=== PATIENT | female | born 1970 | race Caucasian/White ===

== ENCOUNTER 2016-10-15 08:53 | Observation (INO) | payer OTHER ==
[~2016-10-15] VITALS: Ht 176.5 cm; Wt 103.8 kg
--- NOTE | 2016-10-15 11:50 | ED ORDER SUMMARY ---
..... Patient: LEATHA VERGARA OrderSheet [facility] VisitID: [id number] Rashmi Sánchez [place] [address] 45y, F Registration Date/Time: 10/15/2016 ORDER SHEET Weight: 102.0 kg (stated) Allergies: Sulfa Antibiotics, Cipro, Levaquin, Lyrica, Augmentin GENERAL ORDERS: UA-Culture if indicated Urgent (09:10/15/2016 Elsie R.N. verbal order read back to Melissa CANTOR) (Ack 9:32 Simone) (11:26 EHassan R.N.) Urine Drug Screen Urgent (09:10/15/2016 Elsie R.N. verbal order read back to Melissa CANTOR) (Ack 9:32 Simone) (11:26 EHassan R.N.) CBC w Diff Urgent (09:10/15/2016 Elsie R.N. verbal order read back to Melissa CANTOR) (9:21 Raleighams R.N.) CMP Urgent (09:10/15/2016 Raleighams R.N. verbal order read back to Melissa CANTOR) (9:21 JAIROilliams R.N.) Cardiac Panel Stat (09:10/15/2016 Raleighams R.N. verbal order read back to Melissa CANTOR) (9:21 KWilliams R.N.) EKG - ER Stat (09:24 10/15/2016 LNations ER Tech1 per protocol) (9:24 LNations ER Tech1) Chest 1V Urgent (11:51 10/15/2016 Melissa CANTOR) (12:02 Simone) MEDICATION ORDERS: Aspirin PO 325 mg (NOW) (12:33 10/15/2016 Melissa CANTOR) (13:03 Mary Beth R.N.) IV FLUIDS: IV Saline Lock (09:10/15/2016 Elsie R.N. verbal order read back to Melissa CANTOR) (9:21 KWilliams R.N.) ORDER SHEET NOTES: [Electronically signed by Alin Milan MD (14:16 10/15/2016)] [Electronically signed by Kendy Cloud R.N. (15:11 10/15/2016)] [Electronically locked/signed by Kendy Cloud R.N. (15:11 10/15/2016)]
--- NOTE | 2016-10-15 11:50 | ED NURSING NOTES ---
Clinical Report - Nurses [place] [address] [address] [place] [address] 10/15/2016 8:59 Patient: LEATHA VERGARA TRIAGE Triage time 08:46. Acuity: LEVEL 2. Chief Complaint: (Left arm tingling). Alert. No acute distress. ALYSSA COMA SCORE: Protivin Coma Scale: 15- eyes open spontaneously (4); best verbal response- oriented x 4 (5); best motor response- obeys commands (6). --09:13 Jonathan Beauchamp R.N. 09:00 10/15/16. BP: 126/44. HR: 74. RR: 16. O2 saturation: 97% on room air. Temp: 97.9 F (oral). Pain level now 7/10. --09:13 Jonathan Beauchamp R.N. Weight: 102 kg stated. Height/Length: 69 inches Per Patient. BMI: 33.2. --09:00 Jonathan Beauchamp R.N. Medications Januvia Oral (Tablet 100 mg) 1 tablet, daily. --09:58 Jonathan Beauchamp R.N. Ranitidine HCl Oral (Capsule 300 mg) 1 capsule, at bedtime. --09:59 Jonathan Beauchamp R.N. Prazosin HCl Oral (Capsule 1 mg) 1 capsule, 2x a day. --09:59 Jonathan Beauchamp R.N. Triumeq Oral (Tablet 600-50-300 mg) 1 tablet, daily. --10:00 Jonathan Beauchamp R.N. KlonoPIN Oral (Tablet 1 mg) 1 tablet, 3x a day as needed. --10:00 Jonathan Beauchamp R.N. BuPROPion HBr Oral 75mg, BID. --10:00 Jonathan Beauchamp R.N. Lo Loestrin Fe Oral (Tablet 1 MG-10 MCG / 10 MCG) 1 tablet, daily. --10:01 Jonathan Beauchamp R.N. Dexilant Oral (Capsule Delayed Release 60 mg) 1 capsule, daily (x8 weeks). --10:01 Jonathan Beauchamp R.N. Lantus Subcutaneous 55 units, at bedtime. --10:01 Jonathan Beauchamp R.N. Propranolol HCl ER Oral (Capsule Extended Release 24 Hour 80 mg) 1 capsule, daily. --10:03 Jonathan Beauchamp R.N. The following entry was struck by Jonathan Beauchamp R.N., 09:58 (10/15/16) Reason - other. <<STRICKEN ENTRY-- Unknown. --09:07 Jonathan Beauchmap R.N. --END STRIKE>>. Medication/allergy information source: the patient. --09:13 Jonathan Beauchamp R.N. Allergies Sulfa Antibiotics. --09:07 Jonathan Beauchamp R.N. Cipro. --09:07 Jonathan Beauchamp R.N. Levaquin. --09:07 Jonathan Beauchamp R.N. Lyrica. --09:08 Jonathan Beauchamp R.N. Augmentin. --09:08 Jonathan Beauchamp R.N. History Arrived by private vehicle. Primary physician (NANI). ( Arrived via EMS from [facility] [employer]. Per pt she was at [employer] [facility] [employer] [facility] [employer] all night and hasn't slept in >24 hours. Pt experienced some left sided back pain which she describes as in her "rib area" and some left arm tingling. Negative FAST exam per this RN and per medic at scene aside from some slightly decreased painting contractor strength in LUE. Pt states she has a "cardiac" history but is unsure what it entails. She states she takes home medications but is unsure what they are.). This started today. Treatment PROP AND SCENERY MAKER: EMS treatment PROP AND SCENERY MAKER verbally communicated. Finger stick glucose performed (170). BP: 135 / palp. HR: 74. Upon arrival patient awake. PAST MEDICAL HX: The patient has had a hysterectomy. Denies current . SOCIAL HX: Heavy tobacco smoker (cigarette)- 1 pack per day. History of drug use: marijuana. No alcohol use. FALL RISK ASSESSMENT: Fall risk assessment completed. No fall risk identified. NUTRITIONAL RISK ASSESSMENT: The nutritional risk assessment revealed no deficiencies. FUNCTIONAL ASSESSMENT: Functional assessment: no impairments noted. LEARNING NEEDS ASSESSMENT: The learning needs assessment revealed no barriers. SKIN INTEGRITY ASSESSMENT: Skin integrity risk assessment completed. No skin integrity risk identified. ALYSSA COMA SCORE: Alyssa Coma Scale: 15- eyes open spontaneously (4); best verbal response- oriented x 4 (5); best motor response- obeys commands (6). --09:13 Jonathan Beauchamp R.N. ( now complaining of some left sided chest pain. notified, EKG). --09:13 Jonathan Beauchamp R.N. Treatment PROP AND SCENERY MAKER: Pre-hospital 12-lead EKG time: (842). Pre-hospital 12-lead EKG performed en route and interpreted by EMS. EKG consistent with normal tracing. --09:22 Jonathan Beauchamp R.N. PROBLEMS: Bronchitis. Pneumonia. COPD - Chronic Obstructive Pulmonary Disease. Hypertension. Gastroesophageal Reflux Disease. HIV Illness. Diabetes Mellitus. --09:10 Jonathan Beauchamp R.N. ADDITIONAL SURGERIES: Cholecystectomy. Hysterectomy. Knee Surgery. Sinus Surgery. --09:10 Jonathan Beauchamp R.N. Interventions ID band on patient. To treatment room. --09:13 Jonathan Beauchamp R.N. 08:57 10/15/2016 Site #1 started prior to arrival by EMS via IV in the right forearm with an 20g angiocath, with aseptic technique and good blood return; one attempt. --09:07 Jonathan Beauchamp R.N. PHYSICAL ASSESSMENT To room via stretcher. Baseline functional status: unknown. GENERAL / NEURO / PSYCH: Awake. Oriented X 4. Alert. Appears in no acute distress. Protivin Coma Scale: 15- eyes open spontaneously (4); best verbal response- oriented x 4 (5); best motor response- obeys commands (6). Speech normal. Mood/affect normal. Strength is unequal; right painting contractor is greater than the left painting contractor. No sensory deficit. HEENT: No facial asymmetry noted. RESPIRATORY: Respirations not labored. CVS: Capillary refill less than 2 seconds. SKIN: Skin is intact, warm and dry. --09:15 Jonathan Beauchamp R.N. NURSING PROGRESS NOTES 09:16 10/15/16. The plan of care for this patient has been created. nuclear monitoring technician, pulse oximeter and NIBP monitor placed on patient. Patient gowned. Head of bed elevated. ( spouse at bedside). Call light placed in reach. Side rails up x 2. Bed placed in lowest position. Brakes of bed on. --09:16 Jonathan Beauchamp R.N. ( pt states she is unable to provide urine sample at this time). --09:26 Jonathan Beauchamp R.N. ( Pt is unable to provide any home medication names. Called [facility] to obtain medication list). --09:28 Jonathan Beauchamp R.N. The patient reports no complaints and she is calm and resting quietly. --09:57 Jonathan Beauchamp R.N. 09:57 10/15/16. BP: 114/52. HR: 80. RR: 20. O2 saturation: 96% on room air. --09:57 Jonathan Beauchamp R.N. Care transferred and report given (BARBIE Larry). --10:15 Jonathan Beauchamp R.N. Patient ID band checked for patient name and birthdate: patient confirmed. Instructions provided to collect clean catch urine and patient verbalized understanding. Clean catch urine collected with return of yellow-colored clear urine; odor is normal; sample sent to lab for urinalysis, culture and drug screen. Specimen labeled in the presence of the patient. --11:14 Jonathan Beauchamp R.N. The patient reports no complaints and she is calm and resting quietly. --11:14 Jonathan Beauchamp R.N. 11:06 10/15/16. BP: 119/57 (regular adult cuff) taken on the right arm, via an automated monitor, while sitting. HR: 89. RR: 16. O2 saturation: 96% on room air. Temp: 98.3 F (oral). Pain level now: 07/20. --11:27 Kendy Cloud R.N. Cardiac rhythm: normal sinus rhythm. Reassurance given. The patient is calm and resting quietly. Overall patient status is the same- she states feels the same. ( Neuro intact, VSS, waiting on results.). GENERAL / NEURO / PSYCH: The patient reports numbness of the left hand. Denies headache and weakness. Alert. Oriented X 4. HEENT: Pupils equal, round and reactive to light. GI / : Denies nausea. SKIN: Skin is warm. Call light placed in reach. Side rails up x 1. --11:27 Kendy Cloud R.N. ( H/P forms on chart.). --11:56 Mirna Lunaia 12:18 10/15/16. BP: 119/73 (regular adult cuff) taken on the right arm, via an automated monitor, while sitting. HR: 86. RR: 26. O2 saturation: 96%. Temp: 98.6 F (oral). Pain level now: 0/10. --12:20 Kendy Cloud R.N. nuclear monitoring technician, pulse oximeter and NIBP monitor placed on patient. Reassurance given. The patient is calm. Overall patient status is the same- she states feels the same. GENERAL / NEURO / PSYCH: The patient reports numbness of the left arm and hand. Denies headache and weakness. Speech normal. No weakness. GI / : Denies nausea. SKIN: Skin is warm. Call light placed in reach. --12:20 Kendy Cloud R.N. 09:10 10/15/2016 Site #2 started via IV in the left antecubital space with an 18g angiocath. --13:10 Kendy Cloud R.N. 13:03 10/15/2016 Aspirin PO Capsules 325 mg given. Allergies verified and confirmed 5 rights. --13:03 Kendy Cloud R.N. 13:10 10/15/2016 IV Saline Lock Drip IV Discontinued: upon transfer. --13:10 Kendy Cloud R.N. DISPOSITION / DISCHARGE 13:11 10/15/2016 Site #2 reassessed; patent, infusing well and no signs of infection or infiltration. Line flushed with saline. Converted to saline lock. Flushed with 10 mL saline. --13:21 Kendy Cloud R.N. 13:21 10/15/2016 Site #1 removed upon discharge. Manual pressure, pressure dressing, bandaid and bandage applied (wrong site). --13:21 Kendy Cloud R.N. Departure time: 1317 PM. The goals identified in the patient's plan of care were met. Report was given via a phone call. Report included patient's care, treatment, medications, reviewed medication reconcilliation, and condition (including any recent changes or anticipated changes). All questions were answered. Report was acknowledged and care was transferred. (Shavon Cavazos). FALL RISK ASSESSMENT: Fall risk assessment completed. No fall risk identified. --13:22 Kendy Cloud R.N. 13:15 10/15/16. BP: 128/78. HR: 74. RR: 14. O2 saturation: 97%. Temp: 98.3 F (oral). Pain level now: 4/10. --13:22 Kendy Cloud R.N. Transported via stretcher by transport team. --13:22 Kendy Cloud R.N. Locked/Released at 10/15/2016 15:11 by Kendy Cloud R.N.
--- NOTE | 2016-10-15 11:50 | ED CLINICAL REPORT ---
Clinical Report - Physicians/Mid Levels [facility] [address] SAndrew [place]án[place], [place] [address] 10/15/2016 8:59 Patient: LEATHA VERGARA Time Seen: 09:02. Arrived- By private vehicle. Historian- patient. HISTORY OF PRESENT ILLNESS Chief Complaint: CHEST PAIN. It is described as tightness and "pain" and it is described as located in the central chest area and radiating to the left upper extremity. At its maximum, severity described as 7 / 10. When seen in the E.D., severity described as 4 / 10. This started today at about 5 AM and is still present. It was abrupt in onset and has been constant and waxing/waning. Onset during she noticed tingling in her left hand overnight. [place] a casino. The patient has had mild difficulty breathing and nausea. No vomiting. REVIEW OF SYSTEMS No chills, fever, sweats, calf pain or cough. No palpitations. She has had difficulty breathing and mild pedal edema. All systems otherwise negative, except as recorded above. PAST HISTORY Problems: Bronchitis. Pneumonia. COPD - Chronic Obstructive Pulmonary Disease. Hypertension. Gastroesophageal Reflux Disease. HIV Illness. Diabetes Mellitus. Additional Surgeries: Cholecystectomy. Hysterectomy. Knee Surgery. Sinus Surgery. Medications: Propranolol HCl ER Oral (Capsule Extended Release 24 Hour 80 mg) 1 capsule, daily. Lantus Subcutaneous 55 units, at bedtime. Dexilant Oral (Capsule Delayed Release 60 mg) 1 capsule, daily (x8 weeks). Lo Loestrin Fe Oral (Tablet 1 MG-10 MCG / 10 MCG) 1 tablet, daily. BuPROPion HBr Oral 75mg, BID. KlonoPIN Oral (Tablet 1 mg) 1 tablet, 3x a day as needed. Triumeq Oral (Tablet 600-50-300 mg) 1 tablet, daily. Prazosin HCl Oral (Capsule 1 mg) 1 capsule, 2x a day. Ranitidine HCl Oral (Capsule 300 mg) 1 capsule, at bedtime. Januvia Oral (Tablet 100 mg) 1 tablet, daily. Allergies: Augmentin. Cipro. Levaquin. Lyrica. Sulfa Antibiotics. SOCIAL HISTORY Current every day heavy tobacco smoker (cigarette)- 1 pack per day. History of drug use: marijuana. No alcohol use. FAMILY HISTORY Heart disease in first-degree relative (father). ADDITIONAL NOTES The nursing notes have been reviewed. PHYSICAL EXAM Vital Signs: 10/15/2016 09:00 BP: 126/44. HR: 74. RR: 16. O2 saturation: 97%. Temp: 97.9 F. Appearance: Alert. She is morbidly obese. Eyes: Pupils equal, round and reactive to light. ENT: Pharynx normal. Neck: Normal inspection. Neck supple. CVS: Normal heart rate and rhythm. Heart sounds normal. Respiratory: No respiratory distress. Breath sounds normal. Abdomen: Soft and nontender. Bowel sounds normal. No organomegaly. No mass. Obese. Back: Normal external inspection. Skin: Skin warm and dry. Normal skin color. Normal skin turgor. Extremities: Bilateral 1+ pitting edema of the lower extremities. No calf tenderness. LABS, X-RAYS, AND EKG The study has been independently viewed by me. Chest X-ray: No acute disease. The X-rays were independently viewed by me. Laboratory Tests: UA-Culture if indicated: (JUAN MANUEL: 10/15/2016 11:09) ( MsgRcvd 10/15/2016 11:35) Final results Test Result Flag Units (Reference) URINE COLOR YELLOW URINE APPEARANCE CLEAR URINE GLUCOSE NEGATIVE (NEGATIVE) URINE BILIRUBIN NEGATIVE (NEGATIVE) URINE KETONE NEGATIVE (NEGATIVE) URINE SPECIFIC GRAVITY 1.010 (1.010-1.030) URINE PH 6.0 (5.0-8.0) URINE PROTEIN NEGATIVE (NEGATIVE) URINE UROBILINOGEN 0.2 EU/dL (0.2-1.0) URINE NITRITE NEGATIVE (NEGATIVE) URINE BLOOD NEGATIVE (NEGATIVE) URINE LEUK ESTERASE NEGATIVE (NEGATIVE) URINE RBC NONE SEEN rbc/hpf (0-1) URINE WBC RARE wbc/hpf (0-1) URINE EPITHELIAL CELLS 1-3 EPI/hpf (0-5) URINE BACTERIA TRACE (<1+) (NONE SEEN) URINE COMMENT CULT NOT INDICATED URINE CULTURES ARE SET-UP BASED ON THE FOLLOWING CRITERIA:POSITIVE NITRITEPOSITIVE LEUKOCYTE ESTERASEGREATER THAN 10 WHITE BLOOD CELLSMODERATE (2+) OR GREATER BACTERIA CBC w Diff: (JUAN MANUEL: 10/15/2016 09:15) ( MsgRcvd 10/15/2016 09:28) Final results Test Result Flag Units (Reference) WHITE BLOOD COUNT 11.8 H K/uL (4.5-11.5) RED BLOOD COUNT 4.65 M/uL (4.00-5.20) HEMOGLOBIN 13.1 gm/dL (12.0-16.0) HEMATOCRIT 39.5 % (36.0-46.0) MEAN CELL VOLUME 85 fL (80-100) MEAN CORPUSCULAR HGB 28 pg (26-34) MEAN CORPUSCULAR HGB CONC 33 g/dL (31-37) RED CELL DISTRIBUTION WIDTH 14.5 % (11.6-14.8) PLATELET COUNT 278 K/uL (150-400) NEUTROPHIL % 69.0 % (50-75) LYMPH % 25.9 % (25-40) MONO % 3.4 % (3-14) EOSINOPHIL % 1.3 % (0-4) BASOPHIL % 0.4 % (0-2) [id number]: (JUAN MANUEL: 10/15/2016 11:09) ( MsgRcvd 10/15/2016 11:35) Final results Test Result Flag Units (Reference) URINE DRUG SCREEN POSITIVE,Unconfirmed DRUGS DETECTED: TCA (Tricyc Antidep)~~THC (Cannabinoids) The urine drug screen is a qualitative screening test fordrug overdose and abuse. All screen results should beconsidered as presumptive.Drugs screened for are as follows:BenzodiazepinesCocaineAmphetamines/MetamphetaminesTHC (Tetrahydrocannabinol)OpiatesBarbituratesTCA (Tricyclic Antidepressants)MethadonePositive results are unconfirmed. For confirmation, notifythe lab for the specimen to be sent to the reference lab.All confirmations must be performed by a differentmethodology.The ingestion of natural herbal and plant productscontaining Ephedra/Ephedra metabolites can produce in urineone or more substances capable of cross reacting withamphetamine/methamphetamine immunoassays. This testprovides a preliminary result only. A more specificalternative chemical method must be used to obtain aconfirmed analytical result. CHEM 13 PANEL: (JUAN MANUEL: 10/15/2016 09:15) ( MsgRcvd 10/15/2016 09:45) Final results Test Result Flag Units (Reference) GLUCOSE 161 H mg/dL (70-110) BUN 9 mg/dL (7-18) CREATININE 0.8 mg/dL (0.6-1.3) Estimated GFR >60 mL/min Estimated GFR- >60 mL/min Note: Persistent reduction over 3 months in eGFR<60 mL/min/1.73 m2 defines CKD. Patients with eGFR values>=60 mL/min/1.73 m2 may also have CKD if evidence ofpersistent proteinuria. Additional information may be foundat www.kidney.org. SODIUM 139 mmol/L (136-145) POTASSIUM 3.6 mmol/L (3.5-5.1) CHLORIDE 102 mmol/L (98-107) CARBON DIOXIDE 26 mmol/L (21-32) CALCIUM 8.6 mg/dL (8.5-10.1) TOTAL PROTEIN 7.3 g/dL (6.4-8.2) ALBUMIN 3.3 g/dL (3.3-5.0) BILIRUBIN, TOTAL 0.5 mg/dL (0.0-1.0) ALKALINE PHOSPHATASE 96 U/L (46-116) AST (SGOT) 15 U/L (15-37) ALT (SGPT) 24 U/L (12-78) MAGNESIUM 2.1 mg/dL (1.8-2.4) CPK 53 U/L (24-260) TROPONIN I <0.05 ng/mL (0.00-1.5) TROPONIN REFERENCE RANGE:<0.1 NEGATIVE0.1-1.5 INDETERMINANT>1.5 POSITIVE . PROGRESS AND PROCEDURES Discussed case with hospitalist, (Alberto). Reviewed test results and need for additional work-up. Agreed upon treatment plan, need for patient follow-up and decision to place in observation. Health care provider will see patient in hospital. Patient/family counseled. Old medical records ordered. [facility] Disposition: Admitted. Observation. CLINICAL IMPRESSION Chest pain. (Electronically signed by Alin Milan MD 10/15/2016 14:16)
--- NOTE | 2016-10-15 11:50 | ED NURSING NOTES ---
Clinical Report - Nurses [facility] [address] [place] [address] 10/15/2016 8:59 Patient: LEATHA VERGARA TRIAGE Triage time 08:46. Acuity: LEVEL 2. Chief Complaint: (Left arm tingling). Alert. No acute distress. ALYSSA COMA SCORE: [place] Coma Scale: 15- eyes open spontaneously (4); best verbal response- oriented x 4 (5); best motor response- obeys commands (6). --09:13 Jonathan Beauchamp R.N. 09:00 10/15/16. BP: 126/44. HR: 74. RR: 16. O2 saturation: 97% on room air. Temp: 97.9 F (oral). Pain level now 7/10. --09:13 Jonathan Beauchamp R.N. Weight: 102 kg stated. Height/Length: 69 inches Per Patient. BMI: 33.2. --09:00 Jonathan Beauchamp R.N. Medications Januvia Oral (Tablet 100 mg) 1 tablet, daily. --09:58 Jonathan Beauchamp R.N. Ranitidine HCl Oral (Capsule 300 mg) 1 capsule, at bedtime. --09:59 Jonathan Beauchamp R.N. Prazosin HCl Oral (Capsule 1 mg) 1 capsule, 2x a day. --09:59 Jonathan Beauchamp R.N. Triumeq Oral (Tablet 600-50-300 mg) 1 tablet, daily. --10:00 Jonathan Beauchamp R.N. KlonoPIN Oral (Tablet 1 mg) 1 tablet, 3x a day as needed. --10:00 Jonathan Beauchamp R.N. BuPROPion HBr Oral 75mg, BID. --10:00 Jonathan Beauchamp R.N. Lo Loestrin Fe Oral (Tablet 1 MG-10 MCG / 10 MCG) 1 tablet, daily. --10:01 Jonathan Beauchamp R.N. Dexilant Oral (Capsule Delayed Release 60 mg) 1 capsule, daily (x8 weeks). --10:01 Jonathan Beauchamp R.N. Lantus Subcutaneous 55 units, at bedtime. --10:01 Jonathan Beauchamp R.N. Propranolol HCl ER Oral (Capsule Extended Release 24 Hour 80 mg) 1 capsule, daily. --10:03 Jonathan Beauchamp R.N. The following entry was struck by Jonathan Beauchamp R.N., 09:58 (10/15/16) Reason - other. <<STRICKEN ENTRY-- Unknown. --09:07 Jonathan Beauchamp R.N. --END STRIKE>>. Medication/allergy information source: the patient. --09:13 Jonathan Beauchamp R.N. Allergies Sulfa Antibiotics. --09:07 Jonathan Beauchamp R.N. Cipro. --09:07 Jonathan Beauchamp R.N. Levaquin. --09:07 Jonathan Beauchamp R.N. Lyrica. --09:08 Jonathan Beauchamp R.N. Augmentin. --09:08 Jonathan Beauchamp R.N. History Arrived by private vehicle. Primary physician (NANI). ( Arrived via EMS from [facility]. Per pt she was at [facility] all night and hasn't slept in >24 hours. Pt experienced some left sided back pain which she describes as in her "rib area" and some left arm tingling. Negative FAST exam per this RN and per medic at scene aside from some slightly decreased director it project strength in LUE. Pt states she has a "cardiac" history but is unsure what it entails. She states she takes home medications but is unsure what they are.). This started today. Treatment [employer]UST [employer]OP [employer]KER: EMS treatment [employer]ER verbally communicated. Finger stick glucose performed (170). BP: 135 / palp. HR: 74. Upon arrival patient awake. PAST MEDICAL HX: The patient has had a hysterectomy. Denies current . SOCIAL HX: Heavy tobacco smoker (cigarette)- 1 pack per day. History of drug use: marijuana. No alcohol use. FALL RISK ASSESSMENT: Fall risk assessment completed. No fall risk identified. NUTRITIONAL RISK ASSESSMENT: The nutritional risk assessment revealed no deficiencies. FUNCTIONAL ASSESSMENT: Functional assessment: no impairments noted. LEARNING NEEDS ASSESSMENT: The learning needs assessment revealed no barriers. SKIN INTEGRITY ASSESSMENT: Skin integrity risk assessment completed. No skin integrity risk identified. ALYSSA COMA SCORE: [place] Coma Scale: 15- eyes open spontaneously (4); best verbal response- oriented x 4 (5); best motor response- obeys commands (6). --09:13 Jonathan Beauchamp R.N. ( now complaining of some left sided chest pain. notified, EKG). --09:13 Jonathan Beauchamp R.N. Treatment [employer]KER: Pre-hospital 12-lead EKG time: (842). Pre-hospital 12-lead EKG performed en route and interpreted by EMS. EKG consistent with normal tracing. --09:22 Jonathan Beauchamp R.N. PROBLEMS: Bronchitis. Pneumonia. COPD - Chronic Obstructive Pulmonary Disease. Hypertension. Gastroesophageal Reflux Disease. HIV Illness. Diabetes Mellitus. --09:10 Jonathan Beauchamp R.N. ADDITIONAL SURGERIES: Cholecystectomy. Hysterectomy. Knee Surgery. Sinus Surgery. --09:10 Jonathan Beauchamp R.N. Interventions ID band on patient. To treatment room. --09:13 Jonathan Beauchamp R.N. 08:57 10/15/2016 Site #1 started prior to arrival by EMS via IV in the right forearm with an 20g angiocath, with aseptic technique and good blood return; one attempt. --09:07 Jonathan Beauchamp R.N. PHYSICAL ASSESSMENT To room via stretcher. Baseline functional status: unknown. GENERAL / NEURO / PSYCH: Awake. Oriented X 4. Alert. Appears in no acute distress. [place] Coma Scale: 15- eyes open spontaneously (4); best verbal response- oriented x 4 (5); best motor response- obeys commands (6). Speech normal. Mood/affect normal. Strength is unequal; right director it project is greater than the left director it project. No sensory deficit. HEENT: No facial asymmetry noted. RESPIRATORY: Respirations not labored. CVS: Capillary refill less than 2 seconds. SKIN: Skin is intact, warm and dry. --09:15 Jonathan Beauchamp R.N. NURSING PROGRESS NOTES 09:16 10/15/16. The plan of care for this patient has been created. high school counselor, pulse oximeter and NIBP monitor placed on patient. Patient gowned. Head of bed elevated. ( spouse at bedside). Call light placed in reach. Side rails up x 2. Bed placed in lowest position. Brakes of bed on. --09:16 Jonathan Beauchamp R.N. ( pt states she is unable to provide urine sample at this time). --09:26 Jonathan Beauchamp R.N. ( Pt is unable to provide any home medication names. Called [facility] to obtain medication list). --09:28 Jonathan Beauchamp R.N. The patient reports no complaints and she is calm and resting quietly. --09:57 Jonathan Beauchamp R.N. 09:57 10/15/16. BP: 114/52. HR: 80. RR: 20. O2 saturation: 96% on room air. --09:57 Jonathan Beauchamp R.N. Care transferred and report given (BARBIE Larry). --10:15 Jonathan Beauchamp R.N. Patient ID band checked for patient name and birthdate: patient confirmed. Instructions provided to collect clean catch urine and patient verbalized understanding. Clean catch urine collected with return of yellow-colored clear urine; odor is normal; sample sent to lab for urinalysis, culture and drug screen. Specimen labeled in the presence of the patient. --11:14 Jonathan Beauchamp R.N. The patient reports no complaints and she is calm and resting quietly. --11:14 Jonathan Beauchamp R.N. 11:06 10/15/16. BP: 119/57 (regular adult cuff) taken on the right arm, via an automated monitor, while sitting. HR: 89. RR: 16. O2 saturation: 96% on room air. Temp: 98.3 F (oral). Pain level now: 07/20. --11:27 Kendy Cloud R.N. Cardiac rhythm: normal sinus rhythm. Reassurance given. The patient is calm and resting quietly. Overall patient status is the same- she states feels the same. ( Neuro intact, VSS, waiting on results.). GENERAL / NEURO / PSYCH: The patient reports numbness of the left hand. Denies headache and weakness. Alert. Oriented X 4. HEENT: Pupils equal, round and reactive to light. GI / : Denies nausea. SKIN: Skin is warm. Call light placed in reach. Side rails up x 1. --11:27 Kendy Cloud R.N. ( H/P forms on chart.). --11:56 Mirna Lunaia 12:18 10/15/16. BP: 119/73 (regular adult cuff) taken on the right arm, via an automated monitor, while sitting. HR: 86. RR: 26. O2 saturation: 96%. Temp: 98.6 F (oral). Pain level now: 0/10. --12:20 Kendy Cloud R.N. high school counselor, pulse oximeter and NIBP monitor placed on patient. Reassurance given. The patient is calm. Overall patient status is the same- she states feels the same. GENERAL / NEURO / PSYCH: The patient reports numbness of the left arm and hand. Denies headache and weakness. Speech normal. No weakness. GI / : Denies nausea. SKIN: Skin is warm. Call light placed in reach. --12:20 Kendy Cloud R.N. 09:10 10/15/2016 Site #2 started via IV in the left antecubital space with an 18g angiocath. --13:10 Kendy Cloud R.N. 13:03 10/15/2016 Aspirin PO Capsules 325 mg given. Allergies verified and confirmed 5 rights. --13:03 Kendy Cloud R.N. 13:10 10/15/2016 IV Saline Lock Drip IV Discontinued: upon transfer. --13:10 Kendy Cloud R.N. DISPOSITION / DISCHARGE 13:11 10/15/2016 Site #2 reassessed; patent, infusing well and no signs of infection or infiltration. Line flushed with saline. Converted to saline lock. Flushed with 10 mL saline. --13:21 Kendy Cloud R.N. 13:21 10/15/2016 Site #1 removed upon discharge. Manual pressure, pressure dressing, bandaid and bandage applied (wrong site). --13:21 Kendy Cloud R.N. Departure time: 1317 PM. The goals identified in the patient's plan of care were met. Report was given via a phone call. Report included patient's care, treatment, medications, reviewed medication reconcilliation, and condition (including any recent changes or anticipated changes). All questions were answered. Report was acknowledged and care was transferred. (Shavon Cavazos). FALL RISK ASSESSMENT: Fall risk assessment completed. No fall risk identified. --13:22 Kendy Cloud R.N. 13:15 10/15/16. BP: 128/78. HR: 74. RR: 14. O2 saturation: 97%. Temp: 98.3 F (oral). Pain level now: 4/10. --13:22 Kendy Cloud R.N. Transported via stretcher by transport team. --13:22 Kendy Cloud R.N. Locked/Released at 10/15/2016 15:11 by Kendy Cloud R.N.
--- NOTE | 2016-10-15 11:50 | ED ORDER SUMMARY ---
..... Patient: LEATHA VERGARA OrderSheet [facility] VisitID: [id number] [address] [place] [address] 45y, F Registration Date/Time: 10/15/2016 ORDER SHEET Weight: 102.0 kg (stated) Allergies: Sulfa Antibiotics, Cipro, Levaquin, Lyrica, Augmentin GENERAL ORDERS: UA-Culture if indicated Urgent (09:10/15/2016 Elsie R.N. verbal order read back to Melissa CANTOR) (Ack 9:32 Simone) (11:26 EHassan R.N.) Urine Drug Screen Urgent (09:10/15/2016 Elsie R.N. verbal order read back to Melissa CANTOR) (Ack 9:32 Simone) (11:26 EHassan R.N.) CBC w Diff Urgent (09:10/15/2016 Elsie R.N. verbal order read back to Melissa CANTOR) (9:21 Raleighams R.N.) CMP Urgent (09:10/15/2016 Raleighams R.N. verbal order read back to Melissa CANTOR) (9:21 JAIROilliams R.N.) Cardiac Panel Stat (09:10/15/2016 Raleighams R.N. verbal order read back to Melissa CANTOR) (9:21 KWilliams R.N.) EKG - ER Stat (09:24 10/15/2016 LNations ER Tech1 per protocol) (9:24 LNations ER Tech1) Chest 1V Urgent (11:51 10/15/2016 Melissa CANTOR) (12:02 Simone) MEDICATION ORDERS: Aspirin PO 325 mg (NOW) (12:33 10/15/2016 Melissa CANTOR) (13:03 Mary Beth R.N.) IV FLUIDS: IV Saline Lock (09:10/15/2016 Elsie R.N. verbal order read back to Melissa CANTOR) (9:21 KWilliams R.N.) ORDER SHEET NOTES: [Electronically signed by Alin Milan MD (14:16 10/15/2016)] [Electronically signed by Kendy Cloud R.N. (15:11 10/15/2016)] [Electronically locked/signed by Kendy Cloud R.N. (15:11 10/15/2016)]
--- NOTE | 2016-10-15 12:33 | DIAGNOSTIC IMAGING REPORT ---
PROCEDURE: XR CHEST 1 VIEW INDICATION: CHEST PAIN TECHNIQUE: Portable AP view 12:02 p.m. COMPARISON: None. FINDINGS: Lungs are clear. Heart and mediastinum are normal. Thorax is normal. IMPRESSION: 1. Negative chest.
[2016-10-15 13:36] VITALS: BP 128/76
[2016-10-15] MEDS ORDERED: JANUVIA100 MG PO (14:42)
[2016-10-15] MEDS ORDERED: ACID REDUCER75 MG PO (14:43)
[2016-10-15] MEDS ORDERED: PRAZOSIN HCL1 MG PO (14:44)
[2016-10-15] MEDS ORDERED: TRIUMEQ 600-50-1 TAB PO ×2 (14:46→18:45)
[2016-10-15] MEDS ORDERED: BUPROPION HCL75 MG PO (14:47)
[2016-10-15] MEDS ORDERED: CLONAZEPAM1 MG PO (14:47)
[2016-10-15] MEDS ORDERED: LANTUS SOL100 UNITS/ SC (14:48)
[2016-10-15] MEDS ORDERED: DEXILANT60 MG PO (14:48)
[2016-10-15] MEDS ORDERED: LO LOESTRIN FE PO (14:48)
[2016-10-15] MEDS ORDERED: PROPRANOLOL HCL40 MG PO (14:51)
[2016-10-15] MEDS ORDERED: GLYBURIDE5 MG PO (14:51)
[2016-10-15] MEDS ORDERED: COZAAR25 MG PO (14:52)
[2016-10-15] MEDS ORDERED: GABAPENTIN800 MG PO (14:52)
[2016-10-15] MEDS ORDERED: METFORMIN HCL500 MG PO ×2 (14:53→14:54)
--- NOTE | 2016-10-15 15:11 | ED MED RECONCILIATION SUMMARY ---
Patient: LEATHA VERGARA Medication Reconciliation Report [facility] VisitID: [id number] [address] [place] [address] 45y, F Registration Date/Time: 10/15/2016 Weight: 102.0 kg Height/Length: 69 in. BMI: 33.2 ALLERGIES: Augmentin, Cipro, Levaquin, Lyrica, Sulfa Antibiotics The patient's Home Medications are listed below: THE FOLLOWING MEDICATIONS NEED TO BE RECONCILED: BuPROPion HBr Oral 75mg, BID Dexilant Oral (60 mg) 1 capsule, daily, x8 weeks Januvia Oral (100 mg) 1 tablet, daily KlonoPIN Oral (1 mg) 1 tablet, 3x a day Lantus Subcutaneous 55 units, at bedtime Lo Loestrin Fe Oral (1 MG-10 MCG / 10 MCG) 1 tablet, daily Prazosin HCl Oral (1 mg) 1 capsule, 2x a day Propranolol HCl ER Oral (80 mg) 1 capsule, daily Ranitidine HCl Oral (300 mg) 1 capsule, at bedtime Triumeq Oral (600-50-300 mg) 1 tablet, daily The source(s) of the original Home Medication information: patient The following Medications were given to the patient in the Emergency Department: Aspirin [PO] PO 325 mg, administered: 10/15/2016 1:03:00 PM The following Medications were prescribed to the patient: None.
--- NOTE | 2016-10-15 15:11 | ED DISCHARGE INSTRUCTIONS ---
Patient: LEATHA VERGARA General Instructions [facility] VisitID: [id number] [address] [place], [place] [address] 45y, F Registration Date/Time: 10/15/2016 Chest pain. (Electronically signed by Alin Milan MD 10/15/2016 14:16)
--- NOTE | 2016-10-15 15:11 | ED DISCHARGE INSTRUCTIONS ---
Patient: LEATHA VERGARA General Instructions [facility] VisitID: [id number] [address] [place] [place] [address] 45y, F Registration Date/Time: 10/15/2016 Chest pain. (Electronically signed by Alin Milan MD 10/15/2016 14:16)
--- NOTE | 2016-10-15 15:11 | ED MED RECONCILIATION SUMMARY ---
Patient: LEATHA VERGARA Medication Reconciliation Report [facility] VisitID: [id number] [address] [place] [address] 45y, F Registration Date/Time: 10/15/2016 Weight: 102.0 kg Height/Length: 69 in. BMI: 33.2 ALLERGIES: Augmentin, Cipro, Levaquin, Lyrica, Sulfa Antibiotics The patient's Home Medications are listed below: THE FOLLOWING MEDICATIONS NEED TO BE RECONCILED: BuPROPion HBr Oral 75mg, BID Dexilant Oral (60 mg) 1 capsule, daily, x8 weeks Januvia Oral (100 mg) 1 tablet, daily KlonoPIN Oral (1 mg) 1 tablet, 3x a day Lantus Subcutaneous 55 units, at bedtime Lo Loestrin Fe Oral (1 MG-10 MCG / 10 MCG) 1 tablet, daily Prazosin HCl Oral (1 mg) 1 capsule, 2x a day Propranolol HCl ER Oral (80 mg) 1 capsule, daily Ranitidine HCl Oral (300 mg) 1 capsule, at bedtime Triumeq Oral (600-50-300 mg) 1 tablet, daily The source(s) of the original Home Medication information: patient The following Medications were given to the patient in the Emergency Department: Aspirin [PO] PO 325 mg, administered: 10/15/2016 1:03:00 PM The following Medications were prescribed to the patient: None.
--- NOTE | 2016-10-15 15:11 | ED MAR SUMMARY ---
..... Medication Administration Record [facility] [address] [place] [address] Patient: LEATHA VERGARA Visit ID: [id number] 45y, F Weight: 102.0 kg Height/Length: 69 in BMI: 33.2 ALLERGIES: Augmentin, Lyrica, Levaquin, Cipro, Sulfa Antibiotics Given 13:03 10/15/2016 Kendy Cloud R.N. Medication Administered: ASPIRIN [PO], Dose: 325 mg Capsules PO. Medication Ordered: Aspirin PO 325 mg (NOW).
--- NOTE | 2016-10-15 15:11 | ED MAR SUMMARY ---
..... Medication Administration Record [facility] [address] [place] [address] Patient: LEATHA VERGARA Visit ID: [id number] 45y, F Weight: 102.0 kg Height/Length: 69 in BMI: 33.2 ALLERGIES: Augmentin, Lyrica, Levaquin, Cipro, Sulfa Antibiotics Given 13:03 10/15/2016 Kendy Cloud R.N. Medication Administered: ASPIRIN [PO], Dose: 325 mg Capsules PO. Medication Ordered: Aspirin PO 325 mg (NOW).
--- NOTE | 2016-10-15 15:42 | History & Physical Report ---
History Chief Complaint shortness of breath and chest pain History of Present Illness Patient is a 45 year old female with a pmh of hypertension, diabetes, HIV and hyperlipidemia that is presenting with a one day history of chest pain. [place] the [place] where she was [place] various games. Patient claimst to be very anxious during this time and as a result patient was smoking continuously. Patient claimst that she smoked a pack of cigarettes in less than an hour and that is very unusual for her. Patient states that when she won " the jackpot" she became very nervous and started having palpitations, band like tightness around her chest and shortness of breath. Patient additionally had left arm parasthesias associated with this. Patient became concervned that this was something more significant and decided to come tot he hospital for evaluation when the symptoms did not martin after some time. Patient claims the band like tightness and chest pressure were present only during times of anxiety and had no alleviating or exacerbating factors. Patient has never had anything like this happen before. Patient is currently feeling well without any complaint.s Patient History 1. Paresthesia 2. Chest pain 3. Anxiety 4. Diabetes mellitus 5. GERD (gastroesophageal reflux disease) Social History Patient is currently unemployed. She smokes anywhere from 1/2 a pack a day to a full pack of cigarettes. She does not drink or use illicit substances, however she has a remote history of the aforementioned. Patient currently lives with her and manages all her adls independetly. Family History Family history was reviewed; no changes noted. Medications and Allergies Medications Current Medications Sig/Ariel Start time Last Medication Dose Route Stop Time Status Admin Famotidine 20 MG QAM 10/16 09 AC 10/16 PO 08 Losartan Potassium 25 MG DAILY 10/16 0900 AC 10/16 PO 0806 Clonazepam 1 MG TID 10/15 2200 AC 10/16 PO 0602 Patient Own See Dose DAILY 10/15 2099 AC 10/16 Medication Insts (1) PO 08 Patient Own See Dose QHS 10/15 2099 AC 10/15 Medication Insts (2) PO 2118 Clarify Med Order See Dose ASDIRECTED 10/16 1999 AC Insts (3) PO Acetaminophen 650 MG Q6H PRN 10/15 1945 AC PO Bupropion HCl 75 MG BIDWC 10/15 1800 AC 10/16 PO 08 Gabapentin 600 MG QID 10/15 1800 AC 10/16 PO 0603 Gabapentin 200 MG QID 10/15 1800 AC 06/ PO 0603 Insulin Glargine 55 UNITS QPM 10/15 1800 AC 10/15 SC 1902 Insulin Human Lispro See Dose ACHS 10/15 1630 AC 10/16 Insts (4) SC 0806 Propranolol HCl 40 MG DAILY 10/15 1502 AC / PO 1617 Nicotine 21 MG QAM 10/15 1500 AC 10/16 TOP 0806 Dose Instructions: (1)Patient Own Medication: TRIUMEQ 1 TABLET (2)Patient Own Medication: LOESTRIN FE 1 TAB (3)Clarify Med Order: PT MEDS IN PSB (OMNICELL) (4)Insulin Human Lispro: LOW DOSE: ACCUCHECK AND SLIDING SCALE >>To change sliding scale DISCONTINUE this order and enter a NEW order. Thanks< Allergies Coded Allergies: Amoxicillin (From Augmentin) (Severe, 10/15/16) Clavulanic Acid (From Augmentin) (Severe, 10/15/16) Pregabalin (Severe, 10/15/16) Quinolones (Severe, 10/15/16) Sulfa Antibiotics (Severe, 10/15/16) Review of Systems Constitutional Denies: Fever, Chills, Sweats, Weakness, Malaise, Other. Eyes Denies: Pain, Vision Change, Conjunctival Inflammation, Eyelid Inflammation, Redness, Other. ENT Denies: Ear Pain, Ear Discharge, Nose Pain, Nasal Discharge, Nasal Congestion, Mouth Pain, Mouth Swelling, Throat Pain, Throat Swelling, Other. Respiratory Denies: Cough, Dry, SOB w/exertion, Wheezing, Hemoptysis, Pleuritic Pain, Sputum , Other. Cardiovascular Palpitations, Light-headedness, Other (chest pressure). Denies: Orthopnea, PND, Edema. Gastrointestinal Denies: Nausea, Vomiting, Abdominal Pain, Diarrhea, Constipation, Melena, Hematochezia, Other. Genitourinary Denies: Dysuria, Frequency, Incontinence, Hematuria, Retention, Other. Musculoskeletal Denies: Neck Pain, Shoulder Pain, Arm Pain, Back Pain, Hand Pain, Leg Pain, Foot Pain, Other. Skin Denies: Rash, Lesions, Jaundice, Bruising, Other. Neurological Denies: Weakness, Numbness, Incoordination, Change in speech, Confusion, Seizures, Other. Physical Exam Vital Signs / I&Os Vital Signs Date Time Temp Pulse Resp B/P Pulse O2 O2 Flow FiO2 Ox Delivery Rate 10/16 0731 98.4 78 18 116/81 97 Room Air 0.0 10/16 0220 99.1 81 18 122/60 97 Room Air 10/15 2239 98.6 90 18 114/60 99 Room Air 10/15 1805 98.8 81 18 124/75 99 Room Air 10/15 1617 77 06 1336 98.1 77 20 128/76 93 Room Air 0.0 I&O 10/15 0800 10/15 1600 10/16 0000 Intake Total 720 Output Total 250 300 Balance -250 420 General Appearance Alert, Oriented X3, No acute distress HEENT Atraumatic, PERRLA, Moist mucous membranes Lungs Clear to auscultation Neck No masses, No thyromegaly Cardiovascular Regular rate and rhythm, Normal S1 and S2, No murmurs, gallops, rubs Abdomen Soft, No tenderness Extremities No clubbing, No edema, Normal pulses Skin No Breakdown Neurological Normal speech, Normal tone, Cranial nerves intact, No lateralizing signs Psych/Mental Status Mood normal LAB Results Laboratory Tests 10/15 10/15 10/16 10/16 1109 1700 0105 0530 Chemistry Plasma Sodium (136 - 145 mmol/L) 141 Plasma Potassium (3.5 - 5.1 mmol/L) 3.7 Plasma Chloride (98 - 107 mmol/L) 105 CO2 (Enzymatic) (21 - 32 mmol/L) 26 BUN (7 - 18 mg/dL) 8 Creatinine (0.6 - 1.3 mg/dL) 0.8 Est GFR ( Amer) (mL/min) >60 Est GFR (Non-Af Amer) (mL/min) >60 Glucose (70 - 110 mg/dL) 178 Plasma Calcium (8.5 - 10.1 mg/dL) 8.5 Total Bilirubin (0.0 - 1.0 mg/dL) 0.3 AST (15 - 37 U/L) 12 ALT (12 - 78 U/L) 23 Alkaline Phosphatase (46 - 116 U/L) 89 Troponin (0.00 - 1.5 ng/mL) <0.05 <0.05 Total Protein (6.4 - 8.2 g/dL) 6.3 Albumin (3.3 - 5.0 g/dL) 3.0 Hematology WBC (4.5 - 11.5 K/uL) 10.8 RBC (4.00 - 5.20 M/uL) 4.54 Hgb (12.0 - 16.0 gm/dL) 12.8 Hct (36.0 - 46.0 %) 39.0 MCV (80 - 100 fL) 86 MCH (26 - 34 pg) 28 RDW (11.6 - 14.8 %) 14.6 Neut % (Auto) (50 - 75 %) 60.2 Lymph % (Auto) (25 - 40 %) 33.7 [place] % (Auto) (3 - 14 %) 3.5 Eos % (Auto) (0 - 4 %) 2.0 Baso % (Auto) (0 - 2 %) 0.6 Plt Count, EDTA (150 - 400 K/uL) 245 PUBS MCHC (31 - 37 g/dL) 33 Toxicology Drugs Detected (1332 A) THC (Cannabinoids) Urine Drug Screen POSITIVE,Unconfirmed Urines Urine Color YELLOW Urine Appearance CLEAR Urine pH (5.0 - 8.0) 6.0 Ur Specific [place] (1.010 - 1.030) 1.010 Urine Protein (NEGATIVE) NEGATIVE Urine Ketones (NEGATIVE) NEGATIVE Urine Blood (NEGATIVE) NEGATIVE Urine Nitrite (NEGATIVE) NEGATIVE Urine Bilirubin (NEGATIVE) NEGATIVE Urine Urobilinogen (0.2 - 1.0 EU/dL) 0.2 Ur Leukocyte Esterase (NEGATIVE) NEGATIVE Urine RBC (0 - 1 rbc/hpf) NONE SEEN Urine WBC (0 - 1 wbc/hpf) RARE Ur Epithelial Cells (0 - 5 EPI/hpf) 1-3 Urine Bacteria (NONE SEEN) TRACE (<1+) Urine Glucose (NEGATIVE) NEGATIVE Urine Comment CULT NOT INDICATED 06 0900 Chemistry Troponin (0.00 - 1.5 ng/mL) <0.05 Assessment and Plan Problem List 1. Chest pain Plan - chest pressure present during period of anxiety - patient has no signs of infarction on initial encounter - admission ekg shows sinus rythym - negative troponin x1, will continue to trend - pt already received aspirin, and statin on admission - will schedule for nuclear stress test tomorrow - will c.w home medications and will hold for stress test 2. Anxiety Plan - pt has been diagnosed with generalized anxiety disorder - pt is very susceptible to anxiety - this could be the major component in pts presentation - will c/w home medications 3. Diabetes mellitus Plan - history of diabetes - will hold oral hypoglycemics - will start sliding scale coverage - will resume on discharge of patient 4. GERD (gastroesophageal reflux disease) Plan - stable - will c/w home meds 5. HIV (human immunodeficiency virus infection) Plan - known history - pts medication Triumeq will need to be brought from home - pt follows up regularly with ID - no need for intervention while in patient
[2016-10-15 18:05] VITALS: BP 124/75
[2016-10-15] MEDS ORDERED: ATORVASTATIN CA20 MG PO (18:40)
[2016-10-15] MEDS ORDERED: ZYRTEC ALLERGY10 MG PO (18:41)
[2016-10-15] MEDS ORDERED: AMITRIPTYLINE H25 MG PO (18:41)
[2016-10-15 22:39] VITALS: BP 114/60
[2016-10-16 02:20] VITALS: BP 122/60
[2016-10-16 07:31] VITALS: BP 116/81
[2016-10-16 10:00] VITALS: BP 137/78
[2016-10-16 14:30] VITALS: BP 137/81
--- NOTE | 2016-10-16 14:39 | Provider's Discharge Care Plan ---
Problem, Goal, Plan Problem List 1. Chest pain Instructions: Stop smoking, - most likely secondary to anxiety and decrease respiratory function - follow up with your physician for stress test results 2. Anxiety Instructions: Take meds as directed 3. Diabetes mellitus Instructions: - research low carb/no carb diets - take meds as prescrbied 4. GERD (gastroesophageal reflux disease) Instructions: Follow up as needed 5. HIV (human immunodeficiency virus infection) Instructions: Follow up as needed
--- NOTE | 2016-10-16 14:42 | Discharge Summary ---
Discharge Summary Report Admit Date 10/15/16 Discharge Date 10/16/16 Admission Diagnosis Chest pain Discharge Diagnosis Anxiety induced chest pain Brief History Please refer to admission H&P Hospital Course Patient is a 45-year-old female presenting with chest pain 1 day secondary to smoking a pack of cigarettes and anxiety. Patient was admitted for multiple risk factors including tobacco use, hypertension, HIV, hyperlipidemia, anxiety and diabetes mellitus. Patient's initial troponins were completely negative 3. Patient did not have any elevation of blood pressure are abnormal heart rhythms. Patient was scheduled for a Persantine stress test on day 2 of admission. Patient went through the stress test without any sort of complications and had a normal response to the past. Upon review of the past no ischemia was noted and no evidence of abnormal rhythms were noted. Given the normal EKG on admission, normal Persantine stress test, and normal hospital stay , the patient is a low risk for further events occurring outside hospital. Patient will need to follow-up for her results with her primary care physician. Patient will resume all her home medications. Patient urged not to continue smoking and to quit as soon as possible. Patient will be discharged in good health. General Appearance Alert, Oriented X3, No acute distress HEENT PERRLA, Mucous membran moist/pink Lungs Normal air movement Cardiovascular Normal S1, Normal S2, No murmurs, Gallops, Rubs Abdomen Soft, No tenderness Skin No Breakdown, No Significant Lesions Neurological Normal speech, Normal tone Psych/Mental Status Mood NL Lab/Imaging Laboratory Tests 10/15 10/16 10/16 10/16 1700 0105 0530 0900 Chemistry Plasma Sodium (136 - 145 mmol/L) 141 Plasma Potassium (3.5 - 5.1 mmol/L) 3.7 Plasma Chloride (98 - 107 mmol/L) 105 CO2 (Enzymatic) (21 - 32 mmol/L) 26 BUN (7 - 18 mg/dL) 8 Creatinine (0.6 - 1.3 mg/dL) 0.8 Est GFR ( Amer) (mL/min) >60 Est GFR (Non-Af Amer) (mL/min) >60 Glucose (70 - 110 mg/dL) 178 Plasma Calcium (8.5 - 10.1 mg/dL) 8.5 Total Bilirubin (0.0 - 1.0 mg/dL) 0.3 AST (15 - 37 U/L) 12 ALT (12 - 78 U/L) 23 Alkaline Phosphatase (46 - 116 U/L) 89 Troponin (0.00 - 1.5 ng/mL) <0.05 <0.05 <0.05 Total Protein (6.4 - 8.2 g/dL) 6.3 Albumin (3.3 - 5.0 g/dL) 3.0 Hematology WBC (4.5 - 11.5 K/uL) 10.8 RBC (4.00 - 5.20 M/uL) 4.54 Hgb (12.0 - 16.0 gm/dL) 12.8 Hct (36.0 - 46.0 %) 39.0 MCV (80 - 100 fL) 86 MCH (26 - 34 pg) 28 RDW (11.6 - 14.8 %) 14.6 Neut % (Auto) (50 - 75 %) 60.2 Lymph % (Auto) (25 - 40 %) 33.7 Wise % (Auto) (3 - 14 %) 3.5 Eos % (Auto) (0 - 4 %) 2.0 Baso % (Auto) (0 - 2 %) 0.6 Plt Count, EDTA (150 - 400 K/uL) 245 PUBS MCHC (31 - 37 g/dL) 33 Discharge Instructions/Meds Take medications as prescribed Stop smoking Follow-up with her primary care physician
== END 2016-10-16 17:40 | disposition home or self-care (01) ==
LOC: ED SRH 08:53 → TRANS SRH 11:53 → ACUTE2 SRH 11:53
PROVIDERS: ADMIT Emergency Medicine
PROC: 3E073KZ Introduction of Other Diagnostic Substance into Coronary Artery, Percutaneous Approach (ICD-10-PCS; principal; 2016-10-16)
PROC: 4A02XM4 Measurement of Cardiac Total Activity, External Approach (ICD-10-PCS; principal; 2016-10-16)
DX: F45.8 Other somatoform disorders (principal); R07.89 Other chest pain; F41.1 Generalized anxiety disorder; Z21 Asymptomatic human immunodeficiency virus [HIV] infection status; K21.9 Gastro-esophageal reflux disease without esophagitis; E11.9 Type 2 diabetes mellitus without complications; Z79.84 Long term (current) use of oral hypoglycemic drugs; F17.210 Nicotine dependence, cigarettes, uncomplicated
CPT/HCPCS: 29230; 29251; 90004; 90074; 90098; 90100; 90616; 90939; 92610; 92720; 95059